=== PATIENT | male | born 1950 | race Caucasian/White ===

== ENCOUNTER → 2016-09-06 20:28 | Outpatient (CLI) | payer OTHER ==
[2009-12-30 00:32] VITALS: BMI 25.1
== END | disposition home or self-care (01) ==
LOC: D.SLEEP 20:00
DX: G47.33 Obstructive sleep apnea (adult) (pediatric) (principal)

== ENCOUNTER → 2016-11-10 20:24 | Outpatient (CLI) | payer OTHER ==
[2009-12-30 00:32] VITALS: BMI 25.1
== END | disposition home or self-care (01) ==
LOC: D.SLEEP 20:00
DX: G47.33 Obstructive sleep apnea (adult) (pediatric) (principal)

== ENCOUNTER → 2019-06-23 11:30 | Outpatient (CLI) | payer OTHER ==
[2009-12-30 00:32] VITALS: BMI 25.1
--- NOTE | ~2019-06-23 | ST ---
PATIENT:LE GOETZ MEDICAL RECORD: [id number] SEX: M LOCATION:[facility] ORDER #: ADMISSION DATE: 06/23/19 AGE OF PATIENT: 68 REFERRING PHYSICIAN: INTERPRETING PHYSICIAN: KRISTY OLSON MD DATE OF SERVICE: 06/23/2019 PROCEDURE: Nuclear stress test. INDICATION: Angina, shortness of breath, hypertension. He was exercised on standard Lexiscan protocol with 33 mCi of sestamibi injected at peak stress, 10 mCi used previously for rest images. FINDINGS: Gated SPECT reveals a preserved ejection fraction of 63% with decreased thickening and brightening throughout the inferior segments. SPECT imaging: Cardiolite was used as myocardial perfusion agent. There is a large perfusion defect inferiorly and septal, this is largely fixed, however, mixed throughout the inferior segments partially fixed, partially reversible. The remaining segments are with homogeneous uptake at rest and stress. OVERALL IMPRESSION: This is an abnormal nuclear stress test with intermediate risk with a large perfusion defect inferiorly and septally, largely fixed, but reversibility throughout the inferior segments as well as fixed area throughout the inferior segments suggestive of hemodynamically significant coronary artery disease. TRANSINT:[id number] Voice Confirmation ID: [id number] DOCUMENT ID: [id number] KRISTY OLSON MD CC: [id number] DICTATION DATE: 06/23/19 1613 [employer] ACCOUNT EXECUTIVE: 06/24/19 0702 [facility] CLI 06/23/19 [place] [id number] [place] [id number]
== END | disposition home or self-care (01) ==
LOC: D.HCCARDIO 11:00
PROVIDERS: ATTEND Internal Medicine Interventional Cardiology
DX: I20.9 Angina pectoris, unspecified (principal)